=== PATIENT | male | born 1960 | race Caucasian/White ===

== ENCOUNTER 2017-02-05 14:19 | Emergency (ER) | payer BC ==
[~2017-02-05] VITALS: Ht 188 cm; Wt 85.7 kg
[2017-02-05 14:38] VITALS: BP 150/80
--- NOTE | 2017-02-05 15:00 | NUR ---
RADIOLOGY AT BEDSIDE FOR R ANKLE XRAY.
== END 2017-02-05 15:41 | disposition home or self-care (01) ==
LOC: ER 14:22
DX: L03.115 Cellulitis of right lower limb (principal)
CPT/HCPCS: 73610-TC; A4606; Z7610